=== PATIENT | male | born 1965 | race Caucasian/White ===

== ENCOUNTER 2018-01-20 05:51 | Emergency (ER) | END 2018-01-20 12:07 | disposition home or self-care (01) ==

== ENCOUNTER 2018-04-20 00:12 | Emergency (ER) | END 2018-04-20 03:37 | disposition home or self-care (01) ==

== ENCOUNTER 2018-05-06 06:50 | Emergency (ER) | END 2018-05-06 14:03 | disposition home or self-care (01) ==

== ENCOUNTER 2018-06-26 22:02 | Emergency (ER) | END 2018-06-27 01:20 | disposition EXP ==